=== PATIENT | male | born 1945 | race Caucasian/White ===

== ENCOUNTER 2024-04-04 22:36 | Inpatient (IN) | payer MEDICARE, BC ==
[~2024-04-04] VITALS: Ht 185.4 cm; Wt 101.2 kg
[2024-04-04] MEDS ORDERED: LIDOCAINE 1%-EPI 1:100,000 20 ML VIAL ONE (23:29)
[2024-04-04] MEDS: LIDOCAINE 1%-EPI 1:100,000 20 ML VIAL TP ONE (23:30)
[2024-04-04] MEDS ORDERED: ACETAMINOPHEN ES 500 MG TABLET ONE (23:59)
[2024-04-05] MEDS: ACETAMINOPHEN ES 500 MG TABLET PO ONE
[2024-04-05] MEDS ORDERED: MORPHINE SULFATE INJ 4 MG/ML DISP.SYRIN ONE ×2 (00:10→03:15)
[2024-04-05] MEDS: MORPHINE SULFATE INJ 2 MG/ML DISP.SYRIN IV ONE ×2 (00:11→03:20)
[2024-04-05 00:23] LABS: BASOPHILS % (AUTO) 0.3 % (0.0-2.0); EOSINOPHILS # (AUTO) 0.1 K/uL (0.0-0.7); EOSINOPHILS % (AUTO) 0.8 % (0.0-6.0); HEMATOCRIT 51 % (39-51); HEMOGLOBIN 17.1 g/dL (13.5-17.5); LYMPHOCYTES # (AUTO) 0.6 K/uL (0.8-4.8); LYMPHOCYTES % (AUTO) 4.5 % (20.0-44.0); MEAN CORPUSCULAR HEMOGLOBIN 30 PG (26.0-33.0); MEAN CORPUSCULAR HGB CONC 34 g/dl (31.0-36.0); MEAN CORPUSCULAR VOLUME 90 fL (80-96); MONOCYTES # (AUTO) 0.8 K/uL (0.1-1.30); MONOCYTES % (AUTO) 6.4 % (2.0-12.0); NEUTROPHILS # (AUTO) 11.3 K/uL (1.8-8.9); PLATELET COUNT (AUTO) 161 K/uL (150-450); RED BLOOD CELL COUNT(AUTO) 5.64 MIL/uL (4.5-6.0); WHITE BLOOD COUNT (AUTO) 12.8 K/uL (4.3-11.0)
[2024-04-05 00:36] LABS: INR 1.06 (0.91-1.10); PARTIAL THROMBOPLASTIN TIME 28.4 SEC (24.3-34.3); PROTHROMBIN TIME 11.2 SECS (9.2-11.1)
[2024-04-05 00:43] LABS: CREATININE 0.9 mg/dL (0.6-1.3); POTASSIUM 4.3 mmol/L (3.5-5.1)
[2024-04-05] MEDS ORDERED: ACETAMINOPHEN 325 MG TABLET PO PRN (05:30)
[2024-04-05] MEDS ORDERED: HYDROCODONE/APAP 5/325MG TABLET PO PRN (05:30)
[2024-04-05] MEDS ORDERED: ONDANSETRON HCL/PF 4 MG/2 ML VIAL IVP PRN (05:30)
[2024-04-05] MEDS ORDERED: TEST200V3 IM (08:36)
[2024-04-05] MEDS ORDERED: [UNRECOGNIZED DRUG - OTHER] PO (08:36)
[2024-04-05] MEDS ORDERED: LOSA100T31 PO (08:36)
[2024-04-05] MEDS ORDERED: CARB1TAB21 PO (08:36)
[2024-04-05] MEDS ORDERED: ALFU10TA10 PO (08:36)
[2024-04-05] MEDS ORDERED: CARB1TAB40 PO (08:36)
[2024-04-05] MEDS ORDERED: ACET-2030 PO (08:36)
[2024-04-05] MEDS ORDERED: POTA20TA10 PO (08:36)
[2024-04-05] MEDS ORDERED: IBUP-1953 PO (08:37)
[2024-04-05 09:00] VITALS: BP 157/83; TEMP 97.7; O2SAT 95
[2024-04-05] MEDS: MORPHINE SULFATE INJ 2 MG/ML DISP.SYRIN IV PRN (09:33)
[2024-04-05 12:02] VITALS: BP 157/83; TEMP 98; O2SAT 98
[2024-04-05] MEDS ORDERED: CARBIDOPA/LEVODOPA 25/100 MG 1 UDTAB PO SCH (13:00)
[2024-04-05] MEDS: IV NS 0.9% 1,000 ML IV PRN (14:22)
[2024-04-05] MEDS: CARBIDOPA/LEVODOPA 25/100 MG 1 UDTAB PO SCH (14:22)
[2024-04-05 16:00] VITALS: BP 153/95; TEMP 97.9; O2SAT 94
[2024-04-05] MEDS: CARBIDOPA/LEV CR 50/200 MG 1 UDTAB.SA PO SCH (17:16)
[2024-04-05] MEDS: ACETAMINOPHEN ES 500 MG TABLET PO SCH (17:16)
[2024-04-05 20:00] VITALS: BP 151/89; TEMP 98.4; O2SAT 95
[2024-04-06] MEDS: LOSARTAN POTASSIUM 50 MG TABLET PO SCH (05:15)
[2024-04-06 07:00] VITALS: BP 140/89; TEMP 97.9; O2SAT 95
[2024-04-06 07:02] LABS: BASOPHILS % (AUTO) 0.5 % (0.0-2.0); EOSINOPHILS # (AUTO) 0.5 K/uL (0.0-0.7); HEMATOCRIT 47 % (39-51); HEMOGLOBIN 16.1 g/dL (13.5-17.5); LYMPHOCYTES # (AUTO) 0.8 K/uL (0.8-4.8); LYMPHOCYTES % (AUTO) 12.1 % (20.0-44.0); MEAN CORPUSCULAR HEMOGLOBIN 31 PG (26.0-33.0); MEAN CORPUSCULAR HGB CONC 34 g/dl (31.0-36.0); MEAN CORPUSCULAR VOLUME 91 fL (80-96); MONOCYTES # (AUTO) 0.7 K/uL (0.1-1.30); MONOCYTES % (AUTO) 10.7 % (2.0-12.0); NEUTROPHILS # (AUTO) 4.9 K/uL (1.8-8.9); NEUTROPHILS % (AUTO) 69.7 % (43.0-81.0); PLATELET COUNT (AUTO) 138 K/uL (150-450); RED BLOOD CELL COUNT(AUTO) 5.19 MIL/uL (4.5-6.0); RED CELL DISTRIBUTION WIDTH 13.8 % (11.5-15.0)
[2024-04-06] MEDS: POTASSIUM CHLORIDE 20 MEQ TAB.PRT.SR PO SCH (08:27)
[2024-04-06 08:57] LABS: CALCIUM, SERUM 8.6 mg/dL (8.5-10.1); CREATININE 0.9 mg/dL (0.6-1.3); MAGNESIUM 2.1 mg/dL (1.8-2.4); PHOSPHORUS 2.6 mg/dL (2.5-4.9); POTASSIUM 4.1 mmol/L (3.5-5.1)
[2024-04-06] MEDS: TESTOSTERONE CYPIONATE 200 MG/ML IM SCH (14:38)
[2024-04-06 16:00] VITALS: BP 146/100; TEMP 97.7; O2SAT 94
[2024-04-06] MEDS: TAMSULOSIN 0.4 MG CAP.SR.24H PO SCH (19:52)
[2024-04-06 20:00] VITALS: BP 168/97; TEMP 98.2; O2SAT 95
[2024-04-06] MEDS: CLONIDINE HCL 0.1 MG TABLET PO PRN (21:35)
[2024-04-07 08:00] VITALS: BP 141/97; TEMP 98.2; O2SAT 95
[2024-04-07 16:00] VITALS: BP 156/97; TEMP 98.1; O2SAT 96
[2024-04-07] MEDS: CLONIDINE HCL 0.1 MG TABLET PO PRN (17:23)
[2024-04-07 20:00] VITALS: BP 168/98; TEMP 97.6; O2SAT 96
[2024-04-08] VITALS: BP 162/99; O2SAT 96
[2024-04-08 06:41] LABS: BASOPHILS % (AUTO) 0.5 % (0.0-2.0); EOSINOPHILS # (AUTO) 0.6 K/uL (0.0-0.7); HEMATOCRIT 50 % (39-51); HEMOGLOBIN 17.1 g/dL (13.5-17.5); LYMPHOCYTES # (AUTO) 0.6 K/uL (0.8-4.8); LYMPHOCYTES % (AUTO) 7.3 % (20.0-44.0); MEAN CORPUSCULAR HEMOGLOBIN 31 PG (26.0-33.0); MEAN CORPUSCULAR HGB CONC 34 g/dl (31.0-36.0); MEAN CORPUSCULAR VOLUME 90 fL (80-96); MONOCYTES % (AUTO) 11.4 % (2.0-12.0); NEUTROPHILS # (AUTO) 6.5 K/uL (1.8-8.9); NEUTROPHILS % (AUTO) 73.8 % (43.0-81.0); PLATELET COUNT (AUTO) 159 K/uL (150-450); RED CELL DISTRIBUTION WIDTH 13.5 % (11.5-15.0); WHITE BLOOD COUNT (AUTO) 8.8 K/uL (4.3-11.0)
[2024-04-08 07:00] LABS: CALCIUM, SERUM 8.8 mg/dL (8.5-10.1); CREATININE 0.9 mg/dL (0.6-1.3); POTASSIUM 4.3 mmol/L (3.5-5.1)
[2024-04-08 07:30] VITALS: BP 173/100; TEMP 98.2; O2SAT 95
[2024-04-08 08:00] VITALS: BP 159/96; TEMP 97.8; O2SAT 97
== END 2024-04-08 14:30 | disposition left against medical advice (07) | DRG 536 ==
LOC: ER 22:41 → MED 04-05 06:13
PROVIDERS: ADMIT Internal Medicine; ATTEND Internal Medicine
DX: S72.001A Fracture of unspecified part of neck of right femur, initial encounter for closed fracture (principal); R65.10 Systemic inflammatory response syndrome (SIRS) of non-infectious origin without acute organ dysfunction; E87.1 Hypo-osmolality and hyponatremia; W01.0XXA Fall on same level from slipping, tripping and stumbling without subsequent striking against object, initial encounter; I10 Essential (primary) hypertension; G20.A1 Parkinson's disease without dyskinesia, without mention of fluctuations; Z88.0 Allergy status to penicillin; S01.01XA Laceration without foreign body of scalp, initial encounter; Z86.79 Personal history of other diseases of the circulatory system; E86.1 Hypovolemia
CPT/HCPCS: 36415; 70450-TC; 73502; 73564-TC; 80048-TC; 80061-TC; 83735-TC; 84100-TC; 85025-TC; 85730-TC; 93307-TC; A4223; A6403; G0378; J2270; J3490; J7030